=== PATIENT | male | born 1945 | race Two or more races ===

== ENCOUNTER 2023-09-27 13:38 | Outpatient (CLI) | payer OTHER | END 2023-09-27 14:10 | disposition home or self-care (01) | LOC: RAD 13:38 | DX: M41.34 Thoracogenic scoliosis, thoracic region (principal); M51.34 Other intervertebral disc degeneration, thoracic region; M54.50 Low back pain, unspecified; M25.512 Pain in left shoulder; M17.0 Bilateral primary osteoarthritis of knee ==